=== PATIENT | female | born 1980 | race American Indian/Alaskan Native ===

== ENCOUNTER 2017-02-25 18:58 | Emergency (ER) | payer MEDICAID, OTHER ==
[2017-02-25 20:06] VITALS: BP 121/79
[2017-02-25] MEDS ORDERED: Ondansetron 4 MG/2 ML SDV IV ONE (20:13)
[2017-02-25] MEDS ORDERED: HYDROmorphone 1 MG/ML Syringe IVPUSH ONE ×2 (20:13→22:41)
[2017-02-25] MEDS ORDERED: Sodium Chloride 0.9% 1,000 ML IV ONE (20:13)
--- NOTE | 2017-02-25 20:16 | EDM.PDOC ---
ED HPI GENERAL MEDICAL PROBLEM - General Chief Complaint: Flank Pain Stated Complaint: PAIN IN ABD, HAS STINT IN KIDNEY, [id number] Time Seen by Provider: 02/25/17 20:14 Source of Information: Reports: Patient History Limitations: Reports: No Limitations - History of Present Illness INITIAL COMMENTS - FREE TEXT/NARRATIVE: c/o left flank pain all day, had ureteral stent @ [facility] Monday for K-stones. feels like there is something pulling inside her. sharp pain on-off Left Flank Pain Score (Numeric/FACES): 8 - Related Data Allergies Allergy/AdvReac Type Severity Reaction Status Date / Time morphine Allergy Hives Verified 02/25/17 19:59 NSAIDS (Non-Steroidal AdvReac Bleeding Verified 02/25/17 19:59 Anti-Inflamma Home Meds: Home Meds Iron 324 mg PO BID 01/09/14 [History] Multivitamin [Multi Vitamin Daily] 1 tab PO DAILY 01/13/14 [History] Ranitidine [Zantac] 150 mg PO DAILY 04/07/14 [History] Gabapentin [Neurontin] 600 mg PO TID 02/25/17 [History] Omeprazole 20 mg PO BID 02/25/17 [History] Past Medical History - Past Health History Medical/Surgical History: Denies Medical/Surgical History Gastrointestinal History: Reports: PUD Genitourinary History: Reports: Renal Calculus 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: Musculoskeletal History: Reports: Arthritis Other Neuro History: sciatica Psychiatric History: Reports: None Endocrine/Metabolic History: Reports: None Hematologic History: Reports: None Immunologic History: Reports: None Oncologic (Cancer) History: Reports: None Dermatologic History: Reports: None - Past Surgical History GI Surgical History: Reports: Cholecystectomy Female Surgical History: Reports: Section Other Female Surgeries/Procedures: stent in left kidney Dermatological Surgical History: Reports: None Social & Family History - Tobacco Use Smoking Status *Q: Current Every Day Smoker Years of Tobacco use: 9 Packs/Tins Daily: 0.5 Used Tobacco, but Quit: No Second Hand Smoke Exposure: Yes - Caffeine Use Caffeine Use: Reports: Coffee, Tea - Alcohol Use Days Per Week of Alcohol Use: 0 - Recreational Drug Use Recreational Drug Use: No - Living Situation & Occupation Living situation: Reports: with Family Occupation: Employed ED ROS GENERAL - Review of Systems Review Of Systems: ROS reveals no pertinent complaints other than HPI. ED EXAM, RENAL/ - Physical Exam Exam: See Below Exam Limited By: No Limitations General Appearance: Alert, WD/WN, Mild Distress, Other (flank pain) Ears: Hearing Grossly Normal Throat/Mouth: Normal Voice, No Airway Compromise Head: Atraumatic Neck: Non-Tender, Full Range of Motion Respiratory/Chest: No Respiratory Distress Cardiovascular: Regular Rate, Rhythm GI/Abdominal: Soft, Non-Tender Back Exam: CVA Tenderness (L) Neurological: Alert, Oriented, Normal Cognition, Normal Gait, No Motor/Sensory Deficits Psychiatric: Tearful Skin Exam: Warm, Dry, Normal Color Lymphatic: No Adenopathy Course - Vital Signs Last Recorded V/S: Last Vital Signs Temp 36.8 C 02/25/17 20:03 Pulse 95 02/25/17 20:03 Resp 16 02/25/17 20:03 BP 121/79 02/25/17 20:03 Pulse Ox 100 02/25/17 20:03 - Orders/Labs/Meds Labs: Laboratory Tests 02/25/17 02/25/17 02/25/17 Range/Units 19:50 19:50 20:20 WBC 10.3 H (5.0-10.0) 10^3/uL RBC 4.79 (4.2-5.4) 10^6/uL Hgb 10.7 L (12.0-16.0) g/dL Hct 35.7 L (37.0-47.0) % MCV 74.5 L (80-100) fL MCH 22.3 L (27.0-34.0) pg MCHC 30.0 L (33.0-35.0) g/dL Plt Count 417 (150-450) 10^3/uL Neut % (Auto) 60.3 (42.2-75.2) % Lymph % (Auto) 26.9 (20.5-50.1) % [place] % (Auto) 9.7 H (2-8) % Eos % (Auto) 2.5 (1.0-3.0) % Baso % (Auto) 0.6 (0.0-1.0) % Sodium (135-145) mmol/L Potassium (3.6-5.0) mmol/L Chloride (101-111) mmol/L Carbon Dioxide (21.0-31.0) mmol/L Anion Gap BUN (7-18) mg/dL Creatinine (0.6-1.3) mg/dL Est Cr Clr Drug Dosing mL/min Estimated GFR (MDRD) BUN/Creatinine Ratio Glucose (74-105) mg/dL Lactic Acid (0.5-2.2) mmol/L Calcium (8.4-10.2) mg/dl Total Bilirubin (0.2-1.0) mg/dL AST (10-42) IU/L ALT (10-60) IU/L Alkaline Phosphatase (42-121) IU/L Total Protein (6.7-8.2) g/dl Albumin (3.2-5.5) g/dl Globulin Albumin/Globulin Ratio Urine Color Yellow (YELLOW) Urine Appearance Slightly cloudy (CLEAR) Urine pH 6.5 (5.0-9.0) Ur Specific [place] <= 1.005 (1.005-1.030) Urine Protein Negative (NEGATIVE) Urine Glucose (UA) Negative (NEGATIVE) Urine Ketones Negative (NEGATIVE) Urine Occult Blood Small H (NEGATIVE) Urine Nitrite Negative (NEGATIVE) Urine Bilirubin Negative (NEGATIVE) Urine Urobilinogen 0.2 (0.2-1.0) mg/dL Ur Leukocyte Esterase Trace H (NEGATIVE) Urine RBC 0-5 /HPF Urine WBC 0-5 (0-5/HPF) /HPF Ur Epithelial Cells Many H /HPF Urine Bacteria Moderate H (0-FEW/HPF) /HPF Urinalysis Comment Urine HCG, Qual Negative 02/25/17 02/25/17 Range/Units 20:20 20:20 WBC (5.0-10.0) 10^3/uL RBC (4.2-5.4) 10^6/uL Hgb (12.0-16.0) g/dL Hct (37.0-47.0) % MCV (80-100) fL MCH (27.0-34.0) pg MCHC (33.0-35.0) g/dL Plt Count (150-450) 10^3/uL Neut % (Auto) (42.2-75.2) % Lymph % (Auto) (20.5-50.1) % [place] % (Auto) (2-8) % Eos % (Auto) (1.0-3.0) % Baso % (Auto) (0.0-1.0) % Sodium 140 (135-145) mmol/L Potassium 3.5 L (3.6-5.0) mmol/L Chloride 104 (101-111) mmol/L Carbon Dioxide 27.0 (21.0-31.0) mmol/L Anion Gap 12.5 BUN 9 (7-18) mg/dL Creatinine 0.6 (0.6-1.3) mg/dL Est Cr Clr Drug Dosing 141.52 mL/min Estimated GFR (MDRD) > 60 BUN/Creatinine Ratio 15.00 Glucose 76 (74-105) mg/dL Lactic Acid 1.5 (0.5-2.2) mmol/L Calcium 9.6 (8.4-10.2) mg/dl Total Bilirubin 0.7 (0.2-1.0) mg/dL AST 18 (10-42) IU/L ALT 14 (10-60) IU/L Alkaline Phosphatase 99 (42-121) IU/L Total Protein 7.9 (6.7-8.2) g/dl Albumin 4.0 (3.2-5.5) g/dl Globulin 3.9 Albumin/Globulin Ratio 1.03 Urine Color (YELLOW) Urine Appearance (CLEAR) Urine pH (5.0-9.0) Ur Specific [place] (1.005-1.030) Urine Protein (NEGATIVE) Urine Glucose (UA) (NEGATIVE) Urine Ketones (NEGATIVE) Urine Occult Blood (NEGATIVE) Urine Nitrite (NEGATIVE) Urine Bilirubin (NEGATIVE) Urine Urobilinogen (0.2-1.0) mg/dL Ur Leukocyte Esterase (NEGATIVE) Urine RBC /HPF Urine WBC (0-5/HPF) /HPF Ur Epithelial Cells /HPF Urine Bacteria (0-FEW/HPF) /HPF Urinalysis Comment Urine HCG, Qual Meds: Medications Discontinued Medications Generic Name Dose Route Start Last Admin Trade Name Freq PRN Reason Stop Dose Admin Hydromorphone HCl 1 mg 02/25/17 20:13 02/25/17 20:28 Dilaudid IVPUSH 02/25/17 20:14 1 mg ONETIME ONE Administration Hydromorphone HCl 1 mg 02/25/17 22:41 02/25/17 22:51 Dilaudid IVPUSH 02/25/17 22:42 1 mg ONETIME ONE Administration Sodium Chloride 1,000 mls @ 500 mls/hr 02/25/17 20:13 02/25/17 20:27 Normal Saline IV 02/25/17 22:12 500 mls/hr .BOLUS ONE Administration Iopamidol 100 ml 02/25/17 20:35 02/25/17 20:50 Isovue-300 (61%) IVPUSH 02/25/17 20:36 100 ml ONETIME ONE Administration Ondansetron HCl 4 mg 02/25/17 20:13 02/25/17 20:32 Zofran IV 02/25/17 20:14 4 mg ONETIME ONE Administration - Re-Assessments/Exams Free Text/Narrative Re-Assessment/Exam: 02/25/17 22:42 results discussed with pt who states will call surgeon Monday for stent removal sooner than the . Departure - Departure Time of Disposition: 23:00 Disposition: Home, Self-Care 01 Condition: Good Clinical Impression: Pain due to ureteral stent Qualifiers: Encounter type: initial encounter Qualified Code(s): T83.84XA - Pain due to genitourinary prosthetic devices, implants and grafts, initial encounter - Discharge Information Referrals: PCP,None [Primary Care Provider] - Forms: ED Department Discharge Additional Instructions: 1) rest 2) follow p with surgeon rx given; vicodin 5/325mg bid prn x 6
[2017-02-25] MEDS ORDERED: Iopamidol 612 MG/ML 100 ML Bottle IVPUSH ONE (20:35)
[2017-02-25 20:48] LABS: CHLORIDE,CL 104 mmol/L (101-111); SODIUM,NA 140 mmol/L (135-145)
== END 2017-02-25 23:00 | disposition home or self-care (01) ==
LOC: DL.ED 18:58
DX: T83.84XA Pain due to genitourinary prosthetic devices, implants and grafts, initial encounter (principal); R10.9 Unspecified abdominal pain; F17.210 Nicotine dependence, cigarettes, uncomplicated; Z88.5 Allergy status to narcotic agent; Z79.899 Other long term (current) drug therapy
CPT/HCPCS: 36415; 74177; 80053; 81001; 81025; 83605; 85025; 96361; 96374; 96375; 96376; 99284; J1170; J2405; J7030; Q9967; 99283

== ENCOUNTER 2017-02-27 19:11 | Emergency (ER) | payer MEDICAID, OTHER ==
[2017-02-27 19:35] VITALS: BP 140/77
[2017-02-27] MEDS ORDERED: Sodium Chloride 0.9% 1,000 ML IV ONE (19:51)
[2017-02-27] MEDS ORDERED: HYDROmorphone 1 MG/ML Syringe IVPUSH ONE (19:52)
[2017-02-27] MEDS ORDERED: Ondansetron 4 MG/2 ML SDV IV ONE (19:52)
[2017-02-27 20:24] LABS: CHLORIDE,CL 108 mmol/L (101-111); SODIUM,NA 141 mmol/L (135-145)
[2017-02-27] MEDS ORDERED: Acetaminophen/HYDROcodone 325-5 MG Tab ONE (20:54)
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
== END 2017-02-27 21:04 | disposition home or self-care (01) ==
LOC: DL.ED 19:11
DX: N23 Unspecified renal colic (principal); Z88.5 Allergy status to narcotic agent; Z88.8 Allergy status to other drugs, medicaments and biological substances; Z79.899 Other long term (current) drug therapy; F17.210 Nicotine dependence, cigarettes, uncomplicated
CPT/HCPCS: 36415; 80053; 81001; 83605; 85025; 96361; 96374; 96375; 99284; J1170; J2405; J7030

== ENCOUNTER 2017-03-07 14:51 | Emergency (ER) | payer MEDICAID, OTHER ==
[2017-03-07 15:21] VITALS: BP 114/75
[2017-03-07] MEDS ORDERED: Sodium Chloride 0.9% 10 ML Syringe FLUSH PRN (16:16)
[2017-03-07] MEDS ORDERED: Ondansetron 4 MG/2 ML SDV IV ONE (16:19)
[2017-03-07] MEDS ORDERED: Sodium Chloride 0.9% 1,000 ML IV ONE (16:19)
[2017-03-07] MEDS ORDERED: HYDROmorphone 1 MG/ML Syringe IVPUSH ONE (16:21)
--- NOTE | 2017-03-07 16:30 | EDM.PDOC ---
ED HPI GENERAL MEDICAL PROBLEM - General Chief Complaint: Genitourinary Problem Stated Complaint: SIDE/BACK SEVERE PAIN, [id number] Time Seen by Provider: 03/07/17 16:21 Source of Information: Reports: Patient, RN, RN Notes Reviewed History Limitations: Reports: No Limitations - History of Present Illness INITIAL COMMENTS - FREE TEXT/NARRATIVE: Pt presents to the ER with c/o left flank pain which began last evening. She has had this pain in the past, last being seen in ER here on 02/27. She has had a stent placed in the left ureter, which she states has caused more pain than prior to its placement. She states the stent is to be removed on Monday. She states the pain is a crushing pressure pain, stabbing at times. She states the pain wraps around to the LLQ. Onset: Sudden Onset Date: 03/06/17 Left Flank Pain Score (Numeric/FACES): 8 - Related Data Allergies Allergy/AdvReac Type Severity Reaction Status Date / Time morphine Allergy Hives Verified 03/07/17 15:21 NSAIDS (Non-Steroidal AdvReac Bleeding Verified 03/07/17 15:21 Anti-Inflamma Home Meds: Home Meds Iron 324 mg PO BID 01/09/14 [History] Multivitamin [Multi Vitamin Daily] 1 tab PO DAILY 01/13/14 [History] Ranitidine [Zantac] 150 mg PO DAILY 04/07/14 [History] Gabapentin [Neurontin] 600 mg PO TID 02/25/17 [History] Omeprazole 20 mg PO BID 02/25/17 [History] Past Medical History - Past Health History Medical/Surgical History: Denies Medical/Surgical History HEENT History: Reports: None Cardiovascular History: Reports: None Respiratory History: Reports: None Gastrointestinal History: Reports: PUD Genitourinary History: Reports: Renal Calculus 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: Musculoskeletal History: Reports: Arthritis Neurological History: Reports: Other (See Below) Other Neuro History: sciatica Psychiatric History: Reports: None Endocrine/Metabolic History: Reports: None Hematologic History: Reports: None Immunologic History: Reports: None Oncologic (Cancer) History: Reports: None Dermatologic History: Reports: None - Infectious Disease History Infectious Disease History: Reports: None - Past Surgical History Head Surgeries/Procedures: Reports: None GI Surgical History: Reports: Cholecystectomy Female Surgical History: Reports: Section Other Female Surgeries/Procedures: stent in left kidney Dermatological Surgical History: Reports: None Social & Family History - Family History Family Medical History: Noncontributory - Tobacco Use Smoking Status *Q: Current Every Day Smoker Years of Tobacco use: 9 Packs/Tins Daily: 0.5 Used Tobacco, but Quit: No Second Hand Smoke Exposure: Yes - Caffeine Use Caffeine Use: Reports: Coffee, Tea - Alcohol Use Days Per Week of Alcohol Use: 0 - Recreational Drug Use Recreational Drug Use: No - Living Situation & Occupation Living situation: Reports: with Family Occupation: Employed ED ROS GENERAL - Review of Systems Review Of Systems: ROS reveals no pertinent complaints other than HPI. ED EXAM, RENAL/ - Physical Exam Exam: See Below Exam Limited By: No Limitations General Appearance: Alert, WD/WN, No Apparent Distress Eye Exam: Bilateral Eye: Normal Inspection Ears: Normal External Exam, Hearing Grossly Normal Nose: Normal Inspection Throat/Mouth: Normal Inspection, Normal Voice, No Airway Compromise Head: Atraumatic, Normocephalic Neck: Normal Inspection, Supple, Non-Tender, Full Range of Motion Respiratory/Chest: No Respiratory Distress, Lungs Clear, Normal Breath Sounds, No Accessory Muscle Use, Chest Non-Tender Cardiovascular: Normal Peripheral Pulses, Regular Rate, Rhythm, No Edema, No Gallop, No JVD, No Murmur, No Rub GI/Abdominal: Normal Bowel Sounds, Soft, No Distention, Tender (LLQ) (Female) Exam: Deferred Rectal (Female) Exam: Deferred Back Exam: Normal Inspection, Full Range of Motion, CVA Tenderness (L). No: CVA Tenderness (R) Extremities: Normal Inspection, Normal Range of Motion, Non-Tender, No Pedal Edema, Normal Capillary Refill Neurological: Alert, Oriented, Normal Cognition, Normal Gait, No Motor/Sensory Deficits Psychiatric: Normal Affect, Normal Mood Skin Exam: Warm, Dry, Intact, Normal Color, No Rash Lymphatic: No Adenopathy Course - Vital Signs Last Recorded V/S: Last Vital Signs Temp 98.0 F 03/07/17 15:20 Pulse 85 03/07/17 15:20 Resp 18 03/07/17 15:20 BP 114/75 03/07/17 15:20 Pulse Ox 99 03/07/17 15:20 - Orders/Labs/Meds Orders: Active Orders 24 hr Category Date Time Status Peripheral IV Care [RC] . DIRECTED Care 03/07/17 16:18 Active Abdomen Pelvis w wo Cont [CT] Urgent Exams 03/07/17 17:11 Taken Sodium Chloride 0.9% [Saline Flush] Med 03/07/17 16:16 Active 10 ml FLUSH ASDIRECTED PRN Peripheral IV Insertion Adult [OM.PC] Stat Oth 03/07/17 16:16 Ordered Medication Orders Sodium Chloride (Saline Flush) 10 ml FLUSH ASDIRECTED PRN PRN Reason: Keep Vein Open Last Admin: 03/07/17 16:37 Dose: 10 ml Labs: Laboratory Tests 03/07/17 03/07/17 03/07/17 Range/Units 15:26 15:26 16:35 WBC 13.0 H (5.0-10.0) 10^3/uL RBC 4.78 (4.2-5.4) 10^6/uL Hgb 10.6 L (12.0-16.0) g/dL Hct 35.2 L (37.0-47.0) % MCV 73.6 L (80-100) fL MCH 22.2 L (27.0-34.0) pg MCHC 30.1 L (33.0-35.0) g/dL Plt Count 448 (150-450) 10^3/uL Neut % (Auto) 75.5 H (42.2-75.2) % Lymph % (Auto) 16.4 L (20.5-50.1) % Starr % (Auto) 6.1 (2-8) % Eos % (Auto) 1.5 (1.0-3.0) % Baso % (Auto) 0.5 (0.0-1.0) % Sodium (135-145) mmol/L Potassium (3.6-5.0) mmol/L Chloride (101-111) mmol/L Carbon Dioxide (21.0-31.0) mmol/L Anion Gap BUN (7-18) mg/dL Creatinine (0.6-1.3) mg/dL Est Cr Clr Drug Dosing mL/min Estimated GFR (MDRD) BUN/Creatinine Ratio Glucose (74-105) mg/dL Calcium (8.4-10.2) mg/dl Total Bilirubin (0.2-1.0) mg/dL AST (10-42) IU/L ALT (10-60) IU/L Alkaline Phosphatase (42-121) IU/L Total Protein (6.7-8.2) g/dl Albumin (3.2-5.5) g/dl Globulin Albumin/Globulin Ratio Urine Color Yellow (YELLOW) Urine Appearance Slightly cloudy (CLEAR) Urine pH 7.0 (5.0-9.0) Ur Specific Purcell 1.020 (1.005-1.030) Urine Protein 100 H (NEGATIVE) Urine Glucose (UA) Negative (NEGATIVE) Urine Ketones Negative (NEGATIVE) Urine Occult Blood Trace-intact H (NEGATIVE) Urine Nitrite Negative (NEGATIVE) Urine Bilirubin Small H (NEGATIVE) Urine Urobilinogen 0.2 (0.2-1.0) mg/dL Ur Leukocyte Esterase Trace H (NEGATIVE) Urine RBC 10-20 H /HPF Urine WBC 5-10 H (0-5/HPF) /HPF Ur Epithelial Cells Many H /HPF Urine Bacteria Many H (0-FEW/HPF) /HPF Urine Opiates Screen Negative (NEGATIVE) Ur Oxycodone Screen Negative (NEGATIVE) Urine Methadone Screen Negative (NEGATIVE) Ur Barbiturates Screen Negative (NEGATIVE) U Tricyclic Antidepress Negative (NEGATIVE) Ur Phencyclidine Scrn Negative (NEGATIVE) Ur Amphetamine Screen Negative (NEGATIVE) U Methamphetamines Scrn Negative (NEGATIVE) Urine MDMA Screen Negative (NEGATIVE) U Benzodiazepines Scrn Negative (NEGATIVE) Urine Cocaine Screen Negative (NEGATIVE) U Marijuana (THC) Screen Negative (NEGATIVE) 03/07/ Range/Units 16:35 WBC (5.0-10.0) 10^3/uL RBC (4.2-5.4) 10^6/uL Hgb (12.0-16.0) g/dL Hct (37.0-47.0) % MCV (80-100) fL MCH (27.0-34.0) pg MCHC (33.0-35.0) g/dL Plt Count (150-450) 10^3/uL Neut % (Auto) (42.2-75.2) % Lymph % (Auto) (20.5-50.1) % Starr % (Auto) (2-8) % Eos % (Auto) (1.0-3.0) % Baso % (Auto) (0.0-1.0) % Sodium 139 (135-145) mmol/L Potassium 3.8 (3.6-5.0) mmol/L Chloride 106 (101-111) mmol/L Carbon Dioxide 24.0 (21.0-31.0) mmol/L Anion Gap 12.8 BUN 7 (7-18) mg/dL Creatinine 0.6 (0.6-1.3) mg/dL Est Cr Clr Drug Dosing 141.52 mL/min Estimated GFR (MDRD) > 60 BUN/Creatinine Ratio 11.66 Glucose 99 (74-105) mg/dL Calcium 9.0 (8.4-10.2) mg/dl Total Bilirubin 0.7 (0.2-1.0) mg/dL AST 16 (10-42) IU/L ALT 15 (10-60) IU/L Alkaline Phosphatase 110 (42-121) IU/L Total Protein 7.8 (6.7-8.2) g/dl Albumin 3.9 (3.2-5.5) g/dl Globulin 3.9 Albumin/Globulin Ratio 1.00 Urine Color (YELLOW) Urine Appearance (CLEAR) Urine pH (5.0-9.0) Ur Specific Purcell (1.005-1.030) Urine Protein (NEGATIVE) Urine Glucose (UA) (NEGATIVE) Urine Ketones (NEGATIVE) Urine Occult Blood (NEGATIVE) Urine Nitrite (NEGATIVE) Urine Bilirubin (NEGATIVE) Urine Urobilinogen (0.2-1.0) mg/dL Ur Leukocyte Esterase (NEGATIVE) Urine RBC /HPF Urine WBC (0-5/HPF) /HPF Ur Epithelial Cells /HPF Urine Bacteria (0-FEW/HPF) /HPF Urine Opiates Screen (NEGATIVE) Ur Oxycodone Screen (NEGATIVE) Urine Methadone Screen (NEGATIVE) Ur Barbiturates Screen (NEGATIVE) U Tricyclic Antidepress (NEGATIVE) Ur Phencyclidine Scrn (NEGATIVE) Ur Amphetamine Screen (NEGATIVE) U Methamphetamines Scrn (NEGATIVE) Urine MDMA Screen (NEGATIVE) U Benzodiazepines Scrn (NEGATIVE) Urine Cocaine Screen (NEGATIVE) U Marijuana (THC) Screen (NEGATIVE) Meds: Medications Generic Name Dose Route Start Last Admin Trade Name Freq PRN Reason Stop Dose Admin Sodium Chloride 10 ml 03/07/17 16:16 03/07/17 16:37 Saline Flush FLUSH 10 ml ASDIRECTED PRN Administration Keep Vein Open Discontinued Medications Generic Name Dose Route Start Last Admin Trade Name Nica PRN Reason Stop Dose Admin Hydromorphone HCl 1 mg 03/07/17 16:21 03/07/17 16:38 Dilaudid IVPUSH 03/07/17 16:22 1 mg ONETIME ONE Administration Hydromorphone HCl Confirm 03/07/17 18:02 Dilaudid Administered 03/07/17 18:03 Dose 1 mg .ROUTE .STK-MED ONE Sodium Chloride 1,000 mls @ 999 mls/hr 03/07/17 16:19 03/07/17 16:37 Normal Saline IV 03/07/17 17:19 999 mls/hr .BOLUS ONE Administration Iopamidol 100 ml 03/07/17 17:55 03/07/17 17:58 Isovue-300 (61%) IVPUSH 03/07/17 17:56 100 ml ONETIME ONE Administration Ondansetron HCl 4 mg 03/07/17 16:19 03/07/17 16:37 Zofran IV 03/07/17 16:20 4 mg ONETIME ONE Administration Promethazine HCl Confirm 03/07/17 18:02 Phenergan Administered 03/07/17 18:03 Dose 25 mg .ROUTE .STK-MED ONE - Radiology Interpretation Free Text/Narrative:: Abdomen/Pelvis with and without contrast: Malpositioned left ureteral stent, its proximal coil in the proximal ureter. There are signs of urothelial irritation. 4.4 cm simple cyst of left ovary. Potential source of pain. See rad report - Re-Assessments/Exams Free Text/Narrative Re-Assessment/Exam: 03/07/17 16:22 Patient allergies state hives from Morphine. Patient has safely received Dilaudid in the past. Departure - Departure Time of Disposition: 18:16 Disposition: Home, Self-Care 01 Condition: Fair Clinical Impression: History of renal stent, Bacterial vaginosis Ovarian cyst Qualifiers: Laterality: left Qualified Code(s): N83.202 - Unspecified ovarian cyst, left side - Discharge Information Instructions: Bacterial Vaginosis, [id number], Ovarian Cyst, [id number] Forms: ED Department Discharge Additional Instructions: Rx: [place] Rx: Metronidazole Be sure to get to your appointment on Monday. Follow up with your primary care facility. - My Orders Last 24 Hours: My Active Orders 03/07/17 16:16 Sodium Chloride 0.9% [Saline Flush] 10 ml FLUSH ASDIRECTED PRN Peripheral IV Insertion Adult [OM.PC] Stat 03/07/17 16:18 Peripheral IV Care [RC] . DIRECTED 03/07/17 17:11 Abdomen Pelvis w wo Cont [CT] Urgent - Assessment/Plan Last 24 Hours: My Active Orders 03/07/17 16:16 Sodium Chloride 0.9% [Saline Flush] 10 ml FLUSH ASDIRECTED PRN Peripheral IV Insertion Adult [OM.PC] Stat 03/07/17 16:18 Peripheral IV Care [RC] . DIRECTED 03/07/17 17:11 Abdomen Pelvis w wo Cont [CT] Urgent
[2017-03-07 17:00] LABS: CHLORIDE,CL 106 mmol/L (101-111); SODIUM,NA 139 mmol/L (135-145)
[2017-03-07] MEDS ORDERED: Iopamidol 612 MG/ML 100 ML Bottle IVPUSH ONE (17:55)
[2017-03-07] MEDS ORDERED: HYDROmorphone 1 MG/ML Syringe ONE (18:02)
[2017-03-07] MEDS ORDERED: Promethazine 25 MG/ML SDV ONE (18:02)
[2017-03-07] MEDS ORDERED: metroNIDAZOLE 250 MG Tab PO ONE (18:26)
[2017-03-07] MEDS ORDERED: Acetaminophen/HYDROcodone 325-10 MG Tab PO ONE (18:27)
== END 2017-03-07 18:27 | disposition home or self-care (01) ==
LOC: DL.ED 14:51
DX: N83.202 Unspecified ovarian cyst, left side (principal); N76.0 Acute vaginitis; F17.210 Nicotine dependence, cigarettes, uncomplicated; Z88.5 Allergy status to narcotic agent; Z79.899 Other long term (current) drug therapy; Z96.0 Presence of urogenital implants
CPT/HCPCS: 36415; 74178; 80053; 80305; 81001; 85025; 96361; 96374; 96375; 99284; A9270; J1170; J2405; J7030; J7050; Q9967

== ENCOUNTER 2017-04-04 13:22 | Emergency (ER) | payer MEDICAID, OTHER ==
[2017-04-04 13:51] VITALS: BP 120/73
--- NOTE | 2017-04-04 16:36 | CR ---
Clinical history: 36-year-old female patient "shooting pains down the legs" since a fall. "Degenerati ve changes lower lumbar spine" reported on recent MRI scan 31 March 2017. Interpretation: Negative plain film exam. Homogeneous normal bone density and normal height/alignment of the lumbosacral spine. No abnormal dis c space narrowing. (Tiny marginal spur formation L4 vertebra) No sign of lumbar fracture or spondylolisthesis. Symmetric spacing normal-appearing SI joints.
--- NOTE | 2017-04-04 16:38 | CR ---
Clinical history: 36-year-old female with pain after fall. Interpretation: AP, lateral views sacrum and coccyx negative. No sign of sacrococcygeal fracture or segmental dislocation. Symmetric spacing normal-appearing SI and hip joints. Small bony spurs margins of the L4 and L5 vertebral bodies noted incidentally upper margin of the emily ms.
--- NOTE | 2017-04-04 17:00 | CR ---
Clinical history: 36-year-old female with pain and swelling left knee, "after fall". Interpretation: 3 views left knee confirm soft tissue swelling but no appreciable joint effusion, acu te fracture or dislocation. Evidence of previous surgeries and extensive hypertrophic arthritic degen eration. Note: On lateral view there is suggestion of transverse lucent fracture line through the patella, how ever, this "line" not confirmed on the other 2 views and it appears to run into the soft tissues. Conclusion: No fractures.
[2017-04-04] MEDS ORDERED: HYDROmorphone 1 MG/ML Syringe IM ONE (17:06)
[2017-04-04] MEDS ORDERED: methylPREDNISolone Sodium Succinate 125 MG/2 ML SDV IM ONE (17:06)
--- NOTE | 2017-04-04 17:15 | EDM.PDOC ---
ED HPI GENERAL MEDICAL PROBLEM - General Chief Complaint: Lower Extremity Injury/Pain Stated Complaint: KNEE AND BACK, [id number] Time Seen by Provider: 04/04/17 15:43 Source of Information: Reports: Patient, RN, RN Notes Reviewed History Limitations: Reports: No Limitations - History of Present Illness INITIAL COMMENTS - FREE TEXT/NARRATIVE: Pt presents to the ER with c/o falling last night. She c/o pain the the buttocks , low back with shooting pains down both legs. She also c/o pain in the left knee. She states this knee has had surgery prior, and she feels the knee cap "popped out, and popped back in". She states the pain is an 8/10. She states she fell on her butt. Denies hitting her head or LOC. 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: Acetaminophen Left Knee Pain Score (Numeric/FACES): 8 - Related Data Allergies Allergy/AdvReac Type Severity Reaction Status Date / Time morphine Allergy Hives Verified 03/07/17 15:21 NSAIDS (Non-Steroidal AdvReac Bleeding Verified 03/07/17 15:21 Anti-Inflamma Home Meds: Home Meds Iron 324 mg PO BID 01/09/14 [History] Multivitamin [Multi Vitamin Daily] 1 tab PO DAILY 01/13/14 [History] Ranitidine [Zantac] 150 mg PO DAILY 04/07/14 [History] Gabapentin [Neurontin] 600 mg PO TID 02/25/17 [History] Omeprazole 20 mg PO BID 02/25/17 [History] Past Medical History - Past Health History Medical/Surgical History: Denies Medical/Surgical History HEENT History: Reports: None Cardiovascular History: Reports: None Respiratory History: Reports: None Gastrointestinal History: Reports: PUD Genitourinary History: Reports: Renal Calculus 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: Musculoskeletal History: Reports: Arthritis Neurological History: Reports: Neuropathy, Peripheral, Other (See Below) Other Neuro History: sciatica Psychiatric History: Reports: Depression Endocrine/Metabolic History: Reports: None Hematologic History: Reports: None Immunologic History: Reports: None Oncologic (Cancer) History: Reports: None Dermatologic History: Reports: None - Infectious Disease History Infectious Disease History: Reports: None - Past Surgical History Head Surgeries/Procedures: Reports: None GI Surgical History: Reports: Cholecystectomy Female Surgical History: Reports: Section Other Female Surgeries/Procedures: stent in left kidney Dermatological Surgical History: Reports: None Social & Family History - Family History Family Medical History: Noncontributory - Tobacco Use Smoking Status *Q: Current Every Day Smoker Years of Tobacco use: 10 Packs/Tins Daily: 0.5 Used Tobacco, but Quit: No Second Hand Smoke Exposure: Yes - Caffeine Use Caffeine Use: Reports: Coffee, Soda, Tea - Alcohol Use Days Per Week of Alcohol Use: 0 - Recreational Drug Use Recreational Drug Use: No - Living Situation & Occupation Living situation: Reports: with Family Occupation: Employed Review of Systems - Review of Systems Review Of Systems: ROS reveals no pertinent complaints other than HPI. ED EXAM, GENERAL - Physical Exam Exam: See Below Exam Limited By: No Limitations Eye Exam: Bilateral Eye: EOMI, Normal Inspection Ears: Normal External Exam, Hearing Grossly Normal Nose: Normal Inspection Throat/Mouth: Normal Inspection, Normal Voice, No Airway Compromise Head: Atraumatic, Normocephalic Neck: Normal Inspection, Supple, Non-Tender, Full Range of Motion Respiratory/Chest: No Respiratory Distress, Lungs Clear, Normal Breath Sounds, No Accessory Muscle Use, Chest Non-Tender Cardiovascular: Normal Peripheral Pulses, Regular Rate, Rhythm, No Edema, No Gallop, No JVD, No Murmur, No Rub Peripheral Pulses: 2+: Radial (L), Radial (R), Dorsalis Pedis (L), Dorsalis Pedis (R) GI/Abdominal: Normal Bowel Sounds, Soft, Non-Tender, No Organomegaly, No Distention, No Abnormal Bruit, No Mass (Female) Exam: Deferred Rectal (Female) Exam: Deferred Back Exam: Normal Inspection, Full Range of Motion, NT Extremities: No Pedal Edema, Normal Capillary Refill, Joint Swelling (left knee) , Limited Range of Motion (left knee) Neurological: Alert, Oriented, Normal Cognition, Normal Reflexes, No Motor/ Sensory Deficits Psychiatric: Normal Affect, Normal Mood Skin Exam: Warm, Dry, Intact, Normal Color, No Rash Lymphatic: No Adenopathy Course - Vital Signs Last Recorded V/S: Last Vital Signs Temp 98.6 F 04/04/17 13:50 Pulse 80 04/04/17 13:50 Resp 16 04/04/17 13:50 BP 120/73 04/04/17 13:50 Pulse Ox 100 04/04/17 13:50 - Orders/Labs/Meds Orders: Active Orders 24 hr Category Date Time Status Orphenadrine [Norflex] Med 04/04/17 17:15 Active 60 mg IM Q12H Medication Orders Orphenadrine Citrate (Norflex) 60 mg IM Q12H KAROLYN Meds: Medications Generic Name Dose Route Start Last Admin Trade Name Freq PRN Reason Stop Dose Admin Orphenadrine Citrate 60 mg 04/04/17 17:15 Norflex IM Q12H KAROLYN Discontinued Medications Generic Name Dose Route Start Last Admin Trade Name Freq PRN Reason Stop Dose Admin Hydromorphone HCl 1 mg 04/04/17 17:06 Dilaudid IM 04/04/17 17:07 ONETIME ONE Methylprednisolone Sodium Succinate 125 mg 04/04/17 17:06 Solu-Medrol IM 04/04/17 17:07 ONETIME ONE - Radiology Interpretation Free Text/Narrative:: Left knee xray: No acute findings Lumbar/Saccral/Coccyx xray: No acute findings See rad reports Departure - Departure Time of Disposition: 17:14 Disposition: Home, Self-Care 01 Condition: Fair Clinical Impression: Contusion of knee, Knee pain, Knee joint effusion Low back pain Qualifiers: Chronicity: acute Back pain laterality: midline Sciatica presence: with sciatica Sciatica laterality: bilateral sciatica Qualified Code(s): M54.42 - Lumbago with sciatica, left side - Discharge Information Instructions: Knee Sprain, [id number], Muscle Strain, Kveu-ao-[id number], Knee Immobilizer, [id number] Forms: ED Department Discharge Additional Instructions: Follow up with your primary care facility next week RX: Flexeril Use knee immobilizer until pain resolves. Rest, Ice, Elevate the left leg - My Orders Last 24 Hours: My Active Orders 04/04/17 17:15 Orphenadrine [Norflex] 60 mg IM Q12H - Assessment/Plan Last 24 Hours: My Active Orders 04/04/17 17:15 Orphenadrine [Norflex] 60 mg IM Q12H
== END 2017-04-04 17:35 | disposition home or self-care (01) ==
LOC: DL.ED 13:22
DX: S80.02XA Contusion of left knee, initial encounter (principal); M54.42 Lumbago with sciatica, left side; F17.210 Nicotine dependence, cigarettes, uncomplicated; Z79.899 Other long term (current) drug therapy; Z88.5 Allergy status to narcotic agent; Z88.8 Allergy status to other drugs, medicaments and biological substances; W19.XXXA Unspecified fall, initial encounter
CPT/HCPCS: 72100; 72220; 73562; 96372; 99283; J1170; J2360; J2930

== ENCOUNTER 2017-06-04 20:41 | Emergency (ER) | payer MEDICAID, OTHER ==
[2017-06-04 20:52] VITALS: BP 134/74
[2017-06-04] MEDS ORDERED: Acetaminophen/HYDROcodone 325-10 MG Tab PO ONE (23:16)
--- NOTE | 2017-06-04 23:22 | EDM.PDOC ---
ED HPI GENERAL MEDICAL PROBLEM - General Chief Complaint: Lower Extremity Injury/Pain Stated Complaint: DISLOCATED KNEE [id number] Time Seen by Provider: 06/04/17 23:17 Source of Information: Reports: Patient History Limitations: Reports: No Limitations - History of Present Illness INITIAL COMMENTS - FREE TEXT/NARRATIVE: gives h/o left knee instability and prior ACL rrepair, slipped on ice and knee cap popped out and then it went back in. still hurts and knee all swollen Left Knee Pain Score (Numeric/FACES): 10 - Related Data Allergies Allergy/AdvReac Type Severity Reaction Status Date / Time morphine Allergy Hives Verified 06/04/17 20:52 NSAIDS (Non-Steroidal AdvReac Bleeding Verified 06/04/17 20:52 Anti-Inflamma Home Meds: Home Meds Iron 324 mg PO BID 01/09/14 [History] Multivitamin [Multi Vitamin Daily] 1 tab PO DAILY 01/13/14 [History] Ranitidine [Zantac] 150 mg PO DAILY 04/07/14 [History] Gabapentin [Neurontin] 600 mg PO TID 02/25/17 [History] Omeprazole 20 mg PO BID 02/25/17 [History] Past Medical History - Past Health History Medical/Surgical History: Denies Medical/Surgical History HEENT History: Reports: None Cardiovascular History: Reports: None Respiratory History: Reports: None Gastrointestinal History: Reports: PUD Genitourinary History: Reports: Renal Calculus 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: Musculoskeletal History: Reports: Arthritis Neurological History: Reports: Neuropathy, Peripheral, Other (See Below) Other Neuro History: sciatica Psychiatric History: Reports: Depression, Suicide Attempt Endocrine/Metabolic History: Reports: None Hematologic History: Reports: None Immunologic History: Reports: None Oncologic (Cancer) History: Reports: None Dermatologic History: Reports: None - Infectious Disease History Infectious Disease History: Reports: None - Past Surgical History Head Surgeries/Procedures: Reports: None GI Surgical History: Reports: Cholecystectomy Female Surgical History: Reports: Section Other Female Surgeries/Procedures: stent in left kidney Dermatological Surgical History: Reports: None Social & Family History - Family History Family Medical History: Noncontributory - Tobacco Use Smoking Status *Q: Current Every Day Smoker Years of Tobacco use: 9 Packs/Tins Daily: 0.5 Used Tobacco, but Quit: No Second Hand Smoke Exposure: Yes - Caffeine Use Caffeine Use: Reports: Coffee, Soda, Tea - Alcohol Use Days Per Week of Alcohol Use: 0 - Recreational Drug Use Recreational Drug Use: No - Living Situation & Occupation Living situation: Reports: with Family Occupation: Employed Review of Systems - Review of Systems Review Of Systems: ROS reveals no pertinent complaints other than HPI. ED EXAM, GENERAL - Physical Exam Exam: See Below Exam Limited By: No Limitations General Appearance: Alert, WD/WN, Mild Distress, Moderate Distress, Other (pain\ ) Ears: Hearing Grossly Normal Throat/Mouth: Normal Voice, No Airway Compromise Head: Atraumatic Neck: Non-Tender, Full Range of Motion Respiratory/Chest: No Respiratory Distress Cardiovascular: Regular Rate, Rhythm GI/Abdominal: Soft, Non-Tender Extremities: Other (left knee swollen tender R/P, NV wnl, gait limited to pain,) Neurological: Alert, Oriented, Normal Cognition, No Motor/Sensory Deficits Psychiatric: Tearful Skin Exam: Warm, Dry, Normal Color Lymphatic: No Adenopathy Course - Vital Signs Last Recorded V/S: Last Vital Signs Temp 36.6 C 06/04/17 20:50 Pulse 79 06/04/17 20:50 Resp 18 06/04/17 20:50 BP 134/74 06/04/17 20:50 Pulse Ox 100 06/04/17 20:50 - Orders/Labs/Meds Orders: Active Orders 24 hr Category Date Time Status Acetaminophen/HYDROcodone [[place] 325-10 MG] Med 06/04/17 23:16 Once 1 tab PO ONETIME ONE Medication Orders Hydrocodone Bitart/Acetaminophen ([place] 325-10 Mg) 1 tab PO ONETIME ONE Stop: 06/04/17 23:17 Meds: Medications Generic Name Dose Route Start Last Admin Trade Name Freq PRN Reason Stop Dose Admin Hydrocodone Bitart/Acetaminophen 1 tab 06/04/17 23:16 [place] 325-10 Mg PO 06/04/17 23:17 ONETIME ONE Departure - Departure Time of Disposition: 23:19 Disposition: Home, Self-Care 01 Condition: Good Clinical Impression: Knee instability Qualifiers: Laterality: left Qualified Code(s): M25.362 - Other instability, left knee - Discharge Information Instructions: Patellar Dislocation and Subluxation, Phase I Re[facility] Additional Instructions: 1) wear knee immobillizer for comfort 2) elevate leg as much as possible next 3 to 4 days 3) see clinic for ORTHOPEDIC REFERRAL rx given; vicodin 5/325mg bid prn x 12 - My Orders Last 24 Hours: My Active Orders 06/04/17 23:16 Acetaminophen/HYDROcodone [[place] 325-10 MG] 1 tab PO ONETIME ONE - Assessment/Plan Last 24 Hours: My Active Orders 06/04/17 23:16 Acetaminophen/HYDROcodone [[place] 325-10 MG] 1 tab PO ONETIME ONE
== END 2017-06-04 23:27 | disposition home or self-care (01) ==
LOC: DL.ED 20:41
DX: M25.362 Other instability, left knee (principal); F32.9 Major depressive disorder, single episode, unspecified; F17.210 Nicotine dependence, cigarettes, uncomplicated; Z79.899 Other long term (current) drug therapy; Z88.5 Allergy status to narcotic agent; Z88.8 Allergy status to other drugs, medicaments and biological substances
CPT/HCPCS: 73562; 99283; A9270